=== PATIENT | female | born 1970 | race African-American/Black ===

== ENCOUNTER 2017-02-10 09:16 | Outpatient (CLI) | payer MEDICAID | END 2017-02-10 09:17 | disposition home or self-care (01) | DX: R53.83 Other fatigue (principal); D64.9 Anemia, unspecified; Z20.2 Contact with and (suspected) exposure to infections with a predominantly sexual mode of transmission ==

== ENCOUNTER 2017-02-15 10:08 | Outpatient (CLI) | payer MEDICAID | END 2017-02-15 10:09 | disposition home or self-care (01) | DX: M17.0 Bilateral primary osteoarthritis of knee (principal) ==

== ENCOUNTER 2017-02-21 14:49 | Outpatient (CLI) | payer MEDICAID | END 2017-02-21 14:50 | disposition home or self-care (01) | DX: R07.81 Pleurodynia (principal) ==

== ENCOUNTER 2017-03-03 01:35 | Outpatient (CLI) | payer MEDICAID | END 2017-03-03 01:36 | disposition critical access hospital (66) | DX: R52 Pain, unspecified (principal); Y04.2XXA Assault by strike against or bumped into by another person, initial encounter | CPT/HCPCS: A0425; A0429 ==

== ENCOUNTER 2017-03-03 01:54 | Emergency (ER) | payer MEDICAID ==
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
--- NOTE | 2017-03-03 03:12 | XRAY Preliminary Report ---
Exam: XR Shoulder 3 View RT IMPRESSION: 1. No acute fracture or dislocation seen. [facility] SITE ID: [id number]
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
--- NOTE | 2017-03-03 03:16 | XRAY Preliminary Report ---
Exam: XR Ribs w/PA Chest RT IMPRESSION: 1. No acute abnormality seen in the chest or ribs. [facility] SITE ID: [id number]
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
[2017-03-03] MEDS ORDERED: IBUPROFEN 600 MG TABLET PO ONE (03:27)
[2017-03-03] MEDS ORDERED: IBUPROFEN 600 MG TABLET PO STA (03:30)
[2017-03-03 08:35] VITALS: BP 169/112
[2017-03-03 09:36] LABS: BILIRUBIN,URINE NEGATIVE (NEGATIVE)
[2017-03-03 09:42] LABS: HCG UR QUAL NEGATIVE; UA w/ MICROSCOPIC CHARGE YES
[2017-03-03 09:49] LABS: UR CULTURE IF IND NOT INDICATED; WBC,URINE 0-3 /HPF (0-5)
[2017-03-03 10:28] LABS: BASOPHILS % (AUTO) 0.6 %; EOSINOPHILS % (AUTO) 0.4 %; HCT - HEMATOCRIT 35.4 % (37.0-47.0); HGB - HEMOGLOBIN 11.8 g/dL (12.0-16.0); LYMPHOCYTES # (AUTO) 1.1 10^3/uL (1.5-3.5); LYMPHOCYTES % (AUTO) 24.9 %; MEAN CORPUSCULAR HEMOGLOBIN 27.2 pg (27.0-31.0); MEAN CORPUSCULAR HGB CONC 33.5 g/dL (32.0-36.0); MEAN CORPUSCULAR VOLUME 81.4 fL (81.0-99.0); MEAN PLATELET VOLUME 9.1 fL (7.9-10.8); MONOCYTES # (AUTO) 0.6 10^3/uL (0.0-1.0); MONOCYTES % (AUTO) 12.9 %; NEUTROPHILS # (AUTO) 2.7 10^3/uL (1.5-6.6); NEUTROPHILS % (AUTO) 61.2 %; RED BLOOD COUNT 4.35 10^6/uL (4.20-5.40); UNCORRECTED WHITE BLOOD COUNT 4.3 x10^3/uL; WHITE BLOOD COUNT 4.3 x10^3/uL (4.8-10.8)
[2017-03-03 10:44] LABS: ALBUMIN/GLOBULIN RATIO 1.2 (1.0-2.2); BILIRUBIN,TOTAL 0.7 mg/dL (0.2-1.0); CALCIUM 9.2 mg/dL (8.5-10.3); CREATININE 0.7 mg/dL (0.4-1.0); POTASSIUM 3.6 mmol/L (3.5-5.0); TOTAL PROTEIN 8.1 g/dL (6.7-8.2)
== END 2017-03-03 12:56 | disposition home or self-care (01) ==
LOC: EDUNIT# → ED 01:54
DX: M25.511 Pain in right shoulder (principal); R07.89 Other chest pain; W01.0XXA Fall on same level from slipping, tripping and stumbling without subsequent striking against object, initial encounter; Y92.019 Unspecified place in single-family (private) house as the place of occurrence of the external cause; J44.9 Chronic obstructive pulmonary disease, unspecified; J45.909 Unspecified asthma, uncomplicated; K21.9 Gastro-esophageal reflux disease without esophagitis; F17.200 Nicotine dependence, unspecified, uncomplicated
CPT/HCPCS: 36415; 80053; 80306; 80320; 81001; 81003; 81025; 83690; 84443; 85025; 87086; 99283